=== PATIENT | male | born 1955 | race Caucasian/White ===

== ENCOUNTER 2020-12-23 14:38 | Emergency (ER) | payer MEDICARE, OTHER ==
--- NOTE | 2020-12-23 15:00 | EDM.PDOC ---
ED HPI GENERAL MEDICAL PROBLEM - General Chief Complaint: General Stated Complaint: REFERED Time Seen by Provider: 12/23/20 15:49 - History of Present Illness INITIAL COMMENTS - FREE TEXT/NARRATIVE: History of present illness: [] The patient is extremely fatigued and hard to arouse today. Actually said he has been really weak for 2 to 3 days. He is weaker since he got here about 10 days ago after driving himself from [facility]. Before that he was feeling weak as well and he has a history of chronic nonalcoholic fatty liver and liver problems secondary to that. He has no appetite and does not eat well. He does not have any specific pain or focal neurologic findings. He says he feels little better today than he did the last 2 days. He is diabetic, sliding scale. His A1c's have been creeping up recently before eating took this family visit. Review of systems: As per history of present illness and below otherwise all systems reviewed and negative. Past medical history: As per history of present illness and as reviewed below otherwise noncontributory. Surgical history: As per history of present illness and as reviewed below otherwise noncontributory. Social history: No reported history of drug or alcohol abuse. Family history: As per history of present illness and as reviewed below otherwise noncontributory. Physical exam: Constitutional - well developed, well-nourished and in no acute distress HEENT - normocephalic, no evidence of trauma - external nose and mouth normal - no mass in neck and no JVD - mucosae moist EYES - full EOM, PERRL, no icterus - no evidence of inflammation, injection, or drainage Respiratory - no respiratory distress, equal bilateral expansion, lungs clear to auscultation and no abnormal lung sounds Cardiovascular - Regular Rhythm with S1 and S2 appreciated and no murmur, gallop or rub. GI - abdomen soft without distension or organomegaly - normal bowel sounds - no guard or rebound Musculoskeletal no gross deformity of long bones or joints - no tenderness, swelling or edema Neurologic - Alert and oriented times four - CN II-XII grossly intact - motor sensory and coordination symmetrically normal Psychiatric - appropriate mood and affect with normal thought content Hematologic - No petechiae or purpura - mucosa appropriate color and sclera not pale - normal nail bed color and refill Integument - no rash or evidence of trauma - normal turgor Diagnostics: [] Therapeutics: [] Impression: [] Plan: [] Definitive disposition and diagnosis as appropriate pending reevaluation and review of above. - Related Data Allergies Allergy/AdvReac Type Severity Reaction Status Date / Time No Known Allergies Allergy Verified 12/23/20 15:45 Home Meds: Home Meds Aspirin 81 mg PO 12/23/20 [History] Furosemide [Lasix] 12/23/20 [History] Insulin Detemir [Levemir] 0 unit SUBCUT DAILY 12/23/20 [History] Insulin Lispro [Humalog Kwikpen U-100] 12/23/20 [History] Lactulose [Chronulac] 12/23/20 [History] Levothyroxine 125 mcg PO ACBREAKFAST 12/23/20 [History] Pantoprazole [ProTONIX] 40 mg PO 12/23/20 [History] Rifaximin [Xifaxan] 550 mg PO 12/23/20 [History] Spironolactone [Aldactone] 100 mg PO DAILY 12/23/20 [History] Thiamine [Vitamin B-1] 100 mg PO 12/23/20 [History] metFORMIN [Glucophage XR] 500 mg PO BIDMEALS 12/23/20 [History] ED ROS GENERAL - Review of Systems Review Of Systems: Comprehensive ROS is negative, except as noted in HPI. ED EXAM, GENERAL - Physical Exam Exam: See Below Free Text/Narrative:: My physical exam is in the HPI #1 Interpretation EKG Interpretation Comments: EKG done 12/23/2020 at 4:21 PM shows a sinus rhythm heart rate 82 CA 161 QT duration 519 QRS axis 71 interventricular conduction delay consistent with atypical left bundle branch block and repolarization abnormalities consistent with same. No prior for comparison. Impression no obvious acute injury. Course - Vital Signs Last Recorded V/S: Last Vital Signs Temp 35.5 C L 12/23/20 15:41 Pulse 92 12/23/20 15:41 Resp 20 12/23/20 15:41 BP 115/56 L 12/23/20 15:41 Pulse Ox 96 12/23/20 15:41 - Orders/Labs/Meds Orders: Active Orders 24 hr Category Date Time Status Sodium Chloride 0.9% [Normal Saline] 1,000 ml Med 12/23/20 15:59 Active IV .Bolus Sodium Chloride 0.9% [Saline Flush] Med 12/23/20 15:58 Active 10 ml FLUSH ASDIRECTED PRN Sodium Chloride 0.9% [Saline Flush] Med 12/23/20 15:58 Active 2.5 ml FLUSH ASDIRECTED PRN Saline Lock Insert [OM.PC] Stat Oth 12/23/20 15:58 Ordered Medication Orders Sodium Chloride (Normal Saline) 1,000 mls @ 200 mls/hr IV .Bolus ONE Stop: 12/23/20 20:58 Last Admin: 12/23/20 16:25 Dose: 200 mls/hr Documented by: FLORENCE Sodium Chloride (Sodium Chloride 0.9% 10 Ml Syringe) 10 ml FLUSH ASDIRECTED PRN PRN Reason: Keep Vein Open Last Admin: 12/23/20 16:26 Dose: 10 ml Documented by: FLORENCE Sodium Chloride (Sodium Chloride 0.9% 2.5 Ml Syringe) 2.5 ml FLUSH ASDIRECTED PRN PRN Reason: Keep Vein Open Last Admin: 12/23/20 16:26 Dose: 2.5 ml Documented by: FLORENCE Labs: Laboratory Tests 12/23/20 12/23/20 12/23/20 Range/Units 16:14 16:14 16:14 WBC 6.08 (4.0-11.0) K/uL RBC 4.19 L (4.50-5.90) M/uL Hgb 14.7 (13.0-17.0) g/dL Hct 40.6 (38.0-50.0) % MCV 96.9 (80.0-98.0) fL MCH 35.1 H (27.0-32.0) pg MCHC 36.2 (31.0-37.0) g/dL RDW Std Deviation 50.2 (28.0-62.0) fl RDW Coeff of [place] 14 (11.0-15.0) % Plt Count 114 L (150-400) K/uL MPV 10.70 (7.40-12.00) fL Neut % (Auto) 61.8 (48.0-80.0) % Lymph % (Auto) 15.8 L (16.0-40.0) % [place] % (Auto) 16.1 H (0.0-15.0) % Eos % (Auto) 5.8 (0.0-7.0) % Baso % (Auto) 0.5 (0.0-1.5) % Neut # (Auto) 3.8 (1.4-5.7) K/uL Lymph # (Auto) 1.0 (0.6-2.4) K/uL [place] # (Auto) 1.0 H (0.0-0.8) K/uL Eos # (Auto) 0.4 (0.0-0.7) K/uL Baso # (Auto) 0.0 (0.0-0.1) K/uL Nucleated RBC % 0.0 /100WBC Nucleated RBCs # 0 K/uL Sodium 129 L (136-148) mmol/L Potassium 3.9 (3.5-5.1) mmol/L Chloride 96 L (98-107) mmol/L Carbon Dioxide 29.2 (21.0-32.0) mmol/L BUN 8 (7.0-18.0) mg/dL Creatinine 1.0 (0.8-1.3) mg/dL Est Cr Clr Drug Dosing 72.73 mL/min Estimated GFR (MDRD) > 60.0 ml/min Glucose 146 H (74-106) mg/dL Hemoglobin A1c 9.2 H (4.5 - 6.2) % Calcium 8.8 (8.5-10.1) mg/dL Magnesium 1.8 (1.8-2.4) mg/dL Total Bilirubin 2.5 H (0.2-1.0) mg/dL AST 68 H (15-37) IU/L ALT 60 (14-63) IU/L Alkaline Phosphatase 297 H (46-116) U/L Ammonia (19-54) ug/dL Troponin I < 0.050 (0.000-0.056) ng/mL Total Protein 6.0 L (6.4-8.2) g/dL Albumin 2.5 L (3.4-5.0) g/dL Globulin 3.5 (2.6-4.0) g/dL Albumin/Globulin Ratio 0.7 L (0.9-1.6) TSH, Ultra Sensitive 2.02 (0.36-3.74) uIU/mL 10/20/21 Range/Units 16:32 WBC (4.0-11.0) K/uL RBC (4.50-5.90) M/uL Hgb (13.0-17.0) g/dL Hct (38.0-50.0) % MCV (80.0-98.0) fL MCH (27.0-32.0) pg MCHC (31.0-37.0) g/dL RDW Std Deviation (28.0-62.0) fl RDW Coeff of [place] (11.0-15.0) % Plt Count (150-400) K/uL MPV (7.40-12.00) fL Neut % (Auto) (48.0-80.0) % Lymph % (Auto) (16.0-40.0) % [place] % (Auto) (0.0-15.0) % Eos % (Auto) (0.0-7.0) % Baso % (Auto) (0.0-1.5) % Neut # (Auto) (1.4-5.7) K/uL Lymph # (Auto) (0.6-2.4) K/uL [place] # (Auto) (0.0-0.8) K/uL Eos # (Auto) (0.0-0.7) K/uL Baso # (Auto) (0.0-0.1) K/uL Nucleated RBC % /100WBC Nucleated RBCs # K/uL Sodium (136-148) mmol/L Potassium (3.5-5.1) mmol/L Chloride (98-107) mmol/L Carbon Dioxide (21.0-32.0) mmol/L BUN (7.0-18.0) mg/dL Creatinine (0.8-1.3) mg/dL Est Cr Clr Drug Dosing mL/min Estimated GFR (MDRD) ml/min Glucose (74-106) mg/dL Hemoglobin A1c (4.5 - 6.2) % Calcium (8.5-10.1) mg/dL Magnesium (1.8-2.4) mg/dL Total Bilirubin (0.2-1.0) mg/dL AST (15-37) IU/L ALT (14-63) IU/L Alkaline Phosphatase (46-116) U/L Ammonia 80 H (19-54) ug/dL Troponin I (0.000-0.056) ng/mL Total Protein (6.4-8.2) g/dL Albumin (3.4-5.0) g/dL Globulin (2.6-4.0) g/dL Albumin/Globulin Ratio (0.9-1.6) TSH, Ultra Sensitive (0.36-3.74) uIU/mL Meds: Medications Generic Name Dose Route Start Last Admin Trade Name Freq PRN Reason Stop Dose Admin Sodium Chloride 1,000 mls @ 200 mls/hr 12/23/20 15:59 12/23/20 16:25 Normal Saline IV 12/23/20 20:58 200 mls/hr .Bolus ONE Administration Sodium Chloride 10 ml 12/23/20 15:58 12/23/20 16:26 Sodium Chloride 0.9% 10 Ml Syringe FLUSH 10 ml ASDIRECTED PRN Administration Keep Vein Open Sodium Chloride 2.5 ml 12/23/20 15:58 12/23/20 16:26 Sodium Chloride 0.9% 2.5 Ml Syringe FLUSH 2.5 ml ASDIRECTED PRN Administration Keep Vein Open Departure - Departure Time of Disposition: 17:52 Disposition: Home, Self-Care 01 Condition: Good Clinical Impression: Chronic liver disease, Fatigue, Increased ammonia level - Discharge Information Referrals: PCP,Not In Area [Primary Care Provider] - Forms: ED Department Discharge Additional Instructions: You can take an extra dose of lactulose for 1 or 2 doses. Rest Follow-up with primary care [facility] [address] [place] [address] [id number] The following information is given to patients seen in the emergency department who are being discharged to home. This information is to outline your options for follow-up care. We provide all patients seen in our emergency department with a follow-up referral. The need for follow-up, as well as the timing and circumstances, are variable depending upon the specifics of your emergency department visit. If you don't have a primary care physician on staff, we will provide you with a referral. We always advise you to contact your personal physician following an emergency department visit to inform them of the circumstance of the visit and for follow-up with them and/or the need for any referrals to a consulting specialist. The emergency department will also refer you to a specialist when appropriate. This referral assures that you have the opportunity for follow-up care with a specialist. All of these measure are taken in an effort to provide you with optimal care, which includes your follow-up. Under all circumstances we always encourage you to contact your private physician who remains a resource for coordinating your care. When calling for follow-up care, please make the office aware that this follow-up is from your recent emergency room visit. If for any reason you are refused follow-up, please contact the [facility] Emergency Department at and asked to speak to the emergency department charge nurse. Sepsis Event Note (ED) - Focused Exam Vital Signs: Vital Signs Temp Pulse Resp BP Pulse Ox 12/23/20 15:41 35.5 C L 92 20 115/56 L 96 - My Orders Last 24 Hours: My Active Orders 12/23/20 15:58 Sodium Chloride 0.9% [Saline Flush] 10 ml FLUSH ASDIRECTED PRN Sodium Chloride 0.9% [Saline Flush] 2.5 ml FLUSH ASDIRECTED PRN Saline Lock Insert [OM.PC] Stat 12/23/20 15:59 Sodium Chloride 0.9% [Normal Saline] 1,000 ml IV .Bolus - Assessment/Plan Last 24 Hours: My Active Orders 12/23/20 15:58 Sodium Chloride 0.9% [Saline Flush] 10 ml FLUSH ASDIRECTED PRN Sodium Chloride 0.9% [Saline Flush] 2.5 ml FLUSH ASDIRECTED PRN Saline Lock Insert [OM.PC] Stat 12/23/20 15:59 Sodium Chloride 0.9% [Normal Saline] 1,000 ml IV .Bolus
[2020-12-23] MEDS ORDERED: Sodium Chloride 0.9% 10 ML Syringe FLUSH PRN (15:58)
[2020-12-23] MEDS ORDERED: Sodium Chloride 0.9% 2.5 ML Syringe FLUSH PRN (15:58)
[2020-12-23] MEDS ORDERED: Sodium Chloride 0.9% 1,000 ML IV ONE (15:59)
[2020-12-23 16:44] LABS: HEMOGLOBIN A1C 9.2 %
[2020-12-23 17:09] LABS: BLOOD UREA NITROGEN,BUN 8 mg/dL (7.0-18.0); CARBON DIOXIDE,CO2 29.2 mmol/L (21.0-32.0); CHLORIDE,CL 96 mmol/L (98-107); GLUCOSE RANDOM 146 mg/dL (74-106); POTASSIUM,K 3.9 mmol/L (3.5-5.1); SODIUM,NA 129 mmol/L (136-148)
== END 2020-12-23 18:17 | disposition home or self-care (01) ==
LOC: MW.ED 14:38
DX: K76.9 Liver disease, unspecified (principal); E72.20 Disorder of urea cycle metabolism, unspecified; R53.83 Other fatigue; I44.7 Left bundle-branch block, unspecified
CPT/HCPCS: 36415; 80053; 82140; 83036; 83735; 84443; 84484; 85025; 93005; 99285; J7030